=== PATIENT | female | born 1970 | race Caucasian/White ===

== ENCOUNTER → 2016-06-26 | Outpatient (CLI) | payer OTHER ==
[~2016-06-26] MED LIST: ADVAIR 250/501 EA INH; ANAPROX DS550 MG PO; DEPAKENE250 M2 PO; DEPAKOTE500 MG PO; INVEGA3 MG PO; KLONOPIN0.5 MG PO; LODINE400 MG PO; PRILOSEC40 MG PO; RANITIDINE 7575 MG PO; RESTORIL30 MG PO; SAPHRIS10 M1 SL; SAPHRIS5 M1 SL; SINGULAIR10 MG PO; VENTOLIN H0.09 MG/AC INH; XANAX0.25 MG PO
[2016-06-26 15:16] LABS: HEMATOCRIT 39.4 % (37.0-47.0); HEMOGLOBIN 13.2 g/dl (12.0-16.0); MEAN CELL VOLUME 93.6 fl (81.0-99.0); MEAN CORPUSCULAR HGB 31.4 pg (27.0-31.0); MEAN CORPUSCULAR HGB CONC 33.5 g/dl (33.0-37.0); MEAN PLATELET VOLUME 9.2 fl (9.6-12.3); PLATELET COUNT AUTOMATED 190 10*3/uL (130-400); RED BLOOD COUNT 4.21 10*6/uL (4.10-5.10); RED CELL DISTRI WIDTH 13.6 % (0-14.5); WHITE BLOOD COUNT 4.8 10*3/uL (4.8-10.8)
[2016-06-26 15:43] LABS: ATYPICAL LYMPHS 4 % (0-0); LYMPHOCYTE # 1.3 10*3/uL (1.3-4.4); MONOCYTE # 0.5 10*3/uL (0.1-1.0); NEUTROPHILS 62 % (47-73); PLATELET SUFFICIENCY NORMAL (NORMAL); POLYCHROMASIA SLIGHT; TOTAL CELLS COUNTED 100 #CELLS
== END | disposition home or self-care (01) ==
LOC: US 14:00 → LAB 14:06
PROVIDERS: Nurse Practitioner Women's Health
DX: R10.2 Pelvic and perineal pain (principal)

== ENCOUNTER → 2016-08-20 | Outpatient (CLI) | payer OTHER ==
[2016-08-20 11:12] LABS: BASO # 0.1 10*3/uL (0.0-0.1); BASO % 0.8 % (0.0-1.0); EOS # 0.1 10*3/uL (0.0-0.4); EOS % 1.2 % (1.0-4.0); HEMOGLOBIN 13.4 g/dl (12.0-16.0); IG # 0.1 10*3/uL (0.0-0.1); LYMPH # 1.9 10*3/uL (1.3-4.4); LYMPH % 28.6 % (27.0-41.0); MEAN CELL VOLUME 94.1 fl (81.0-99.0); MEAN CORPUSCULAR HGB 31.5 pg (27.0-31.0); MEAN CORPUSCULAR HGB CONC 33.5 g/dl (33.0-37.0); MEAN PLATELET VOLUME 8.7 fl (9.6-12.3); MONO # 0.7 10*3/uL (0.1-1.0); NEUT # 3.8 10*3/uL (2.3-7.9); NEUT % 57.5 % (47.0-73.0); PLATELET COUNT AUTOMATED 227 10*3/uL (130-400); RED BLOOD COUNT 4.25 10*6/uL (4.10-5.10); RED CELL DISTRI WIDTH 13.5 % (0-14.5); WHITE BLOOD COUNT 6.5 10*3/uL (4.8-10.8)
== END | disposition home or self-care (01) ==
LOC: LAB 10:56
PROVIDERS: Obstetrics & Gynecology
DX: N80.0 Endometriosis of uterus (principal); N94.6 Dysmenorrhea, unspecified

== ENCOUNTER 2016-08-27 05:10 | Inpatient (IN) | payer OTHER ==
[~2016-08-27] VITALS: Ht 172.7 cm; Wt 77.1 kg
[2016-08-27] VITALS (9 sets, daily range): BP systolic 123–146; BP diastolic 55–83
--- NOTE | ~2016-08-27 | WRIGHTHP ---
[place], [place] PATIENT HISTORY AND PHYSICAL EXAM NAME: GALI COYLE [facility] #: [id number] UNIT #: [id number] ROOM: DOCTOR: REYNA SOLIZ MD BIRTHDATE: [birth year] DOS: 08/27/2016 PRIMARY PROVIDER: Dr. Tram Duarte. HISTORY OF PRESENT ILLNESS: This is a 46-year-old white female, 2, para 2, AB 0, status post tubal ligation, who was seen on 08/01/2016 in referral for pelvic pain, severe cramping and abnormal bleeding. The patient is a very pleasant white female who had had a tubal ligation in 1993 and an endometrial ablation with NovaSure in 1999. She had done very well with these events until 06/2016, when she started having severe dysmenorrhea with re-onset of bleeding like a period and then 2 weeks in between having several days of severe cramps as well. The patient had an ultrasound on 06/26/2016 that was considered to be normal. She continued to have this intense cramping with and without any bleeding. She was asking for narcotics, but I stated that all this may well be adenomyosis, how long as one to use narcotics for this situation. I discussed the limited therapy options that we had. The patient and I both decided LAVH and bilateral salpingectomy was in order. The risks, benefits, indications, potential complications, and alternatives were given, okay was stated and her consent was signed. We also did discuss her pulmonary situation and recommended the surgery once pulmonary clears her so that she can have general anesthesia, this is secondary to asthma that she has. She agrees. Her recent Pap had also been normal. PAST MEDICAL HISTORY: Reveals 2 pregnancies and 2 vaginal deliveries. She has also had the NovaSure and tubal ligation as I mentioned. SOCIAL HISTORY: She does smoke interestingly enough with this pulmonary condition about a pack of cigarettes a day. She does consume alcohol socially. MEDICATIONS: She uses buspirone 30 mg morning and evening for anxiety. She has a breathing machine at home that she uses on a p.r.n. basis. She uses omeprazole 40 mg daily for acid reflux, Seroquel XR 400 mg daily for sleep, Singulair 20 mg daily for allergies, divalproex sodium 500 mg daily for depression. She also takes the same medication 250 mg 2 tablets at night for depression. She takes Breo Ellipta 200/25 mcg daily for her asthma as well. ALLERGIES: THE PATIENT STATES AN ALLERGY TO VICODIN AND ATIVAN. REVIEW OF SYSTEMS: Other than what I mentioned is stable. FAMILY HISTORY: Reveals father with diabetes and her mother is , but she does not say from what disorder. PHYSICAL EXAMINATION: GENERAL: Pleasant white female. She is 5 feet 8 inches, 158 pounds, BMI is 24. VITAL SIGNS: Blood pressure is 116/83. HEENT AND NECK: Grossly intact. LUNGS: Grossly intact. CARDIAC: Grossly intact. BREASTS: Grossly intact. [place], [place] PATIENT HISTORY AND PHYSICAL EXAM NAME: GALI COYLE UNIT #: [id number] ROOM: DOCTOR: REYNA SOLIZ MD BIRTHDATE: [birth year] ABDOMEN: Grossly intact. EXTREMITIES: Grossly intact. NEUROLOGIC: Grossly intact. GENITOURINARY: External genitalia, vagina, cervix normal. Bimanual exam reveals the uterus to be quite tender, anteverted and anteflexed, consistent with adenomyosis, but without significant atypicality either by ultrasound or exam otherwise. Adnexa were negative. RECTAL: Negative. Stool heme test negative. ASSESSMENT: The assessment is that of a patient status post tubal ligation and status post NovaSure, who now has a rather acute onset of pelvic pain over the last 3 months as well as significant dysmenorrhea with adenomyosis suspected. PLAN: The patient will undergo an LAVH and bilateral salpingectomy on 08/27/2016. The patient also has had clearance by Pulmonary to proceed with general anesthesia for this surgery. REYNA SOLIZ MD CM:HISPHYS:PATIENT HISTORY AND PHYSICAL EXAMINATION [id number] SHAYNA CORREA [facility] MD REYNA SLOIZ MD 08/23/16 0646 interface
--- NOTE | ~2016-08-27 | DS ---
[place], [place] DISCHARGE SUMMARY [id number] UNIT #: [id number] ROOM: 422 DOCTOR: REYNA SOLIZ MD BIRTHDATE: [birth year] DOS: 08/28/2016 HOSPITAL COURSE: This is a very pleasant 46-year-old white female who for reasons of suspected adenomyosis and having significant dysmenorrhea, status post tubal ligation and NovaSure, underwent an LAVH, lysis of adhesions, and bilateral salpingectomy on 08/27/2016. The EBL was 150-200 mL and the patient tolerated the surgery well. On postop rounds not only the day of surgery around 1:30 in the afternoon, but also in the morning on postop day #1, 08/28/2016, the patient was doing well. She was alert. She was ambulating well. She was voiding well. She was passing gas. Her lungs and cardiac status were stable. She had good bowel sounds. Her incisions were stable. She had no significant vaginal bleeding and her IV sites in her calves were within normal limits. The patient and I reviewed her operative pictures and understanding was stated. We also reviewed her discharge instructions. She will increase her diet and activity as tolerated. She will contact us should she have any complications as outlined in the discharge instructions. She will follow up in 2 weeks, as she is scheduled to go to [place] in mid September and she will follow up in 6 weeks as well. She was given Percocet 5/325 one p.o. q. 4 hours p.r.n., #25 tablets without refill. She will mix this and nonsteroidal anti-inflammatory agents to utilize in her postop recovery. She will continue on her various medications otherwise. The patient did state understanding to the information provided and was discharged in satisfactory condition on 08/28/2016. REYNA SOLIZ MD CM:CHAVEZ [id number] SHAYNA SOLIZ MD 08/28/16 0751 interface
--- NOTE | ~2016-08-27 | O ---
[place], [place] OPERATIVE NOTE [id number] UNIT #: [id number] ROOM: 422 DOCTOR: REYNA SOLIZ MD BIRTHDATE: [birth year] DOS: 08/27/2016 PREOPERATIVE DIAGNOSIS: The patient with status post tubal ligation and NovaSure, who is now having rather severe acute pelvic pain over the last 3-4 months as well as significant dysmenorrhea with adenomyosis suspected. POSTOPERATIVE DIAGNOSES: The patient with status post tubal ligation and NovaSure, who is now having rather severe acute pelvic pain over the last 3-4 months as well as significant dysmenorrhea with adenomyosis suspected with the 3 thick adhesions between the right ovary and the right sidewall. PROCEDURE: LAVH, bilateral salpingectomy, and lysis of these 3 adhesions. SURGEON: Dr. Reyna Soliz and Dr. Akira Fairchild. ANESTHESIA: General. ESTIMATED BLOOD LOSS: 150-200 mL. REPLACEMENTS: IV fluids, Ancef and Ofirmev as well as Toradol. COMPLICATIONS: There were no significant complications, although I would describe the surgery in detail with one addition. The patient's condition to recovery stable. OPERATIVE SUMMARY: The patient was taken to the operating room in supine position, general anesthesia, endotracheal intubation, lithotomy position, prepped and draped in routine manner. The cervix was grasped with a tenaculum and a cervical manipulator placed and Mendiola catheter placed to straight drain. Once this was completed, we made infraumbilical suprapubic and right lower quadrant incisions. We placed a 5 mm trocar sleeve and laparoscope through the infraumbilical incision under direct visualization and insufflated with CO2. We then placed the suprapubic trocar sleeve and a right lower quadrant trocar sleeve, both 5 mm trocar sleeves and trocars. Examination of the pelvis revealed the uterus to be relatively small with a normal anterior cul-de-sac and posterior cul-de-sac, but the uterosacral ligaments were extremely thickened. The right ovary was adherent with 3 separate thick adhesions to the right sidewall. These were able to be lysed using the LigaSure device. The left ovary and tube were otherwise normal. Both tubes showed evidence of the previous tubal ligation. Using the LigaSure device, we then freed up the right ovary from the sidewall and then we freed the fallopian tubes from their connections to the ovary in top of the broad ligament down to the uterus using the LigaSure device. We then created round ligament and uteroovarian ligament pedicles and took our dissection down to just near the uterine vasculature at which point we then created a bladder flap connecting essentially all the way except just in the midline. Once this was completed and photographs taken, we then did do a brief exam of the upper abdomen, which did reveal some omental to anterior abdominal wall adhesions, but otherwise the upper abdomen was grossly within normal limits. We then removed our instrumentation and turned our attention vaginally repositioning the patient. We were struck with the relative [place], [place] OPERATIVE NOTE NAME: GALI COYLE UNIT #: [id number] ROOM: [facility] DOCTOR: REYNA SOLIZ MD BIRTHDATE: [birth year] immobility of the cervix due to the thickness of the uterosacral ligaments. We did inject the cervix in a circumferential manner and then, make a circumferential incision. We displaced the bladder anteriorly and kept it well suspended as well as the ureters were well suspended from her vaginal dissection. We entered the posterior cul-de-sac, created uterosacral and cardinal ligament pedicles using Shona clamps and sutures of 0 Vicryl in transfixing manner and the LigaSure. We took several additional pedicles using the LigaSure and then we entered the anterior cul-de-sac without complication. We then took several additional pedicles and inverted the uterus and then using the LigaSure from its last soft tissue connections and removed the uterus, cervix, and tubes intact. We examined the cuff and her pedicles and did ligate several bleeders particularly on the left and we did have some oozing from the cuff as we were closing it, first reperitonealizing in a pursestring manner with the 2-0 Vicryl and closing the cuff with an 0 Vicryl [id number]. The oozing did resolve and we reinsufflated the abdomen and after repositioning the patient and reinserting our instrumentation, we visualized what appeared to be several small cuff bleeders just to the right of the midline. We attempted to cauterize this using a LigaSure device and then we irrigated and removed the irrigation and finally we placed a potato-based coagulant across the vaginal cuff. We then observed this for sometime and initially thought we had excellent hemostasis, but there was persistence of 1 bleeding area. At this time, I decided to reposition the patient and I opened the cuff again and we did open the perineal closure as well and we found the bleeder and put two [id number] 0 Vicryl sutures in this area. We then carefully watched for any evidence of bleeding at any other site and noted none. We then reperitonealized using the 2-0 Vicryl in a pursestring manner and then closed the cuff with a series of interrupted 0 Vicryl [id number] sutures. Once this was completed and again we had good hemostasis of the vaginal cuff. While I was still at the vaginal cuff, my partner, Dr. Fairchild reinsufflated the abdomen, we repositioned the patient and we looked carefully again at the vaginal cuff using irrigation and removal and observation. Noting at this time good hemostasis, we did again place our potato-based coagulant over the cuff and we observed. We noted no bleeding in any point to the white coagulant over the cuff and we noted the sidewalls were stable as well as the ureters. Once this was completed and once again, we removed the 2 lower trocar sleeves and instrumentation under visualization and noting no excessive anterior abdominal bleeding, CO2 was allowed to escape, followed by removal of the infraumbilical trocar sleeve and laparoscope. Each incision was closed with several 3-0 Monocryl suture. Steri-Strips and dressings placed. The patient was then cleaned off, taken out of lithotomy position, awakened, extubated, and transferred to recovery in satisfactory condition with stable sponge and instrument count, good hemostasis and stable vital signs and a clear urine output, which we felt was altered somewhat by the positioning of the patient and started to improve as we took her out of Trendelenburg position. [place], [place] OPERATIVE NOTE NAME: GALI COYLE Franny UNIT #: [id number] ROOM: [facility] DOCTOR: REYNA SOLIZ MD BIRTHDATE: [birth year] REYNA SOLIZ MD CM:OPRECORD:OPERATIVE NOTE [id number] SHAYNA SOLIZ MD 08/27/16 1141 interface
[2016-08-27] MEDS ORDERED: SEROQUEL400 M1 PO (11:57)
[2016-08-27] MEDS ORDERED: BUSPAR15 MG PO (11:57)
[2016-08-27] MEDS ORDERED: COGENTIN0.5 MG PO (11:58)
[2016-08-28] VITALS: BP 124/68
[2016-08-28 08:00] VITALS: BP 115/66
== END 2016-08-28 10:20 | disposition home or self-care (01) | DRG 743 ==
LOC: SDC 05:10 → 4E 10:37 → SDC 11:00 → 4E 08-28 10:20
PROC: 0UT9FZZ Resection of Uterus, Via Natural or Artificial Opening With Percutaneous Endoscopic Assistance (ICD-10-PCS; principal; 2016-08-27)
PROC: 0UT7FZZ Resection of Bilateral Fallopian Tubes, Via Natural or Artificial Opening With Percutaneous Endoscopic Assistance (ICD-10-PCS; 2016-08-27)
PROC: 0UTC7ZZ Resection of Cervix, Via Natural or Artificial Opening (ICD-10-PCS; 2016-08-27)
DX: N94.6 Dysmenorrhea, unspecified (principal); J45.909 Unspecified asthma, uncomplicated; N80.0 Endometriosis of uterus; R10.2 Pelvic and perineal pain; Z88.5 Allergy status to narcotic agent; Z88.8 Allergy status to other drugs, medicaments and biological substances

== ENCOUNTER → 2016-11-19 | Outpatient (CLI) | payer OTHER ==
[~2016-11-19] MED LIST changes: +BUSPAR15 MG PO; +COGENTIN0.5 MG PO; +SEROQUEL400 M1 PO
== END | disposition home or self-care (01) ==
LOC: ORTHO 01:51
DX: M25.551 Pain in right hip (principal)

== ENCOUNTER 2019-12-16 17:35 | Emergency (ER) | payer OTHER ==
[~2019-12-16] VITALS: Wt 62.1 kg
[2019-12-16] MEDS ORDERED: Motrin,Rufen800 MG PO (17:58)
[2019-12-16] MEDS ORDERED: AMOXICILLIN500 M2 PO (17:58)
[2019-12-16] MEDS ORDERED: CLINDAMYCIN HC300 MG PO (18:00)
== END 2019-12-16 18:09 | disposition home or self-care (01) ==
LOC: ED 17:35
DX: K04.7 Periapical abscess without sinus (principal); F17.200 Nicotine dependence, unspecified, uncomplicated; Z88.8 Allergy status to other drugs, medicaments and biological substances; Z88.5 Allergy status to narcotic agent; Z88.6 Allergy status to analgesic agent

== ENCOUNTER 2020-03-18 14:25 | Emergency (ER) | payer OTHER ==
[~2020-03-18] VITALS: Ht 170.1 cm; Wt 63.5 kg
[~2020-03-18 14:25] MED LIST changes: +AMOXICILLIN500 M2 PO; +CLINDAMYCIN HC300 MG PO; +Motrin,Rufen800 MG PO
[2020-03-18 15:14] LABS: BILIRUBIN Negative (Negative); BLOOD Negative (Negative); CLARITY Clear (Clear); COLOR Yellow (Yellow); GLUCOSE Negative (Negative); KETONE Trace (Negative); LEUKO ESTERASE Trace (Negative); NITRITE Negative (Negative)
[2020-03-18 15:28] LABS: BACTERIA 1+
[2020-03-18 15:30] LABS: BASO # 0.1 10*3/uL (0.0-0.1); BASO % 0.5 % (0.0-1.0); EOS % 0.2 % (1.0-4.0); HEMATOCRIT 40.2 % (37.0-47.0); LYMPH # 1.2 10*3/uL (1.3-4.4); LYMPH % 11.7 % (27.0-41.0); MEAN CORPUSCULAR HGB CONC 32.6 g/dl (33.0-37.0); MONO # 0.5 10*3/uL (0.1-1.0); MONO % 5.3 % (3.0-9.0); NEUT # 8.2 10*3/uL (2.3-7.9); NEUT % 81.8 % (47.0-73.0); PLATELET COUNT AUTOMATED 317 10*3/uL (130-400); RED BLOOD COUNT 4.37 10*6/uL (4.10-5.10); RED CELL DISTRI WIDTH 12.5 % (0-14.5)
[2020-03-18 15:47] LABS: ALBUMIN 3.6 gm/dl (3.1-4.5); ALKALINE PHOSPHATASE 146 U/L (45-117); BUN 15 mg/dl (7-24); CHLORIDE 104 mmol/L (98-107); CREATININE 1.06 mg/dL (0.55-1.02); LIPASE 26 U/L (73-393); POTASSIUM 4.2 mmol/L (3.5-5.1); SGOT/AST 18 IU/L (3-35); SGPT/ALT 22 U/L (12-78); SODIUM 137 mmol/L (136-145); TOTAL PROTEIN 7.8 gm/dL (6.4-8.2)
[2020-03-18] MEDS ORDERED: DICYCLOMINE HCL10 MG PO (17:16)
== END 2020-03-18 17:23 | disposition home or self-care (01) ==
LOC: ED 14:25
PROVIDERS: Physician Assistant
DX: K59.00 Constipation, unspecified (principal); F17.200 Nicotine dependence, unspecified, uncomplicated; Z88.6 Allergy status to analgesic agent; Z88.8 Allergy status to other drugs, medicaments and biological substances; Z79.899 Other long term (current) drug therapy

== ENCOUNTER → 2020-03-30 | Outpatient (CLI) | payer OTHER ==
[~2020-03-30] MED LIST changes: +DICYCLOMINE HCL10 MG PO
== END | disposition home or self-care (01) ==
LOC: RAD 12:12
PROVIDERS: ATTEND Nurse Practitioner Family
DX: M25.551 Pain in right hip (principal); M25.552 Pain in left hip

== ENCOUNTER 2020-04-06 17:02 | Emergency (ER) | payer OTHER ==
[~2020-04-06] VITALS: Ht 172.7 cm; Wt 63.5 kg
[2020-04-06] MEDS ORDERED: Motrin,Rufen800 MG PO (17:41)
== END 2020-04-06 17:49 | disposition home or self-care (01) ==
LOC: ED 17:02
DX: M25.551 Pain in right hip (principal); G89.29 Other chronic pain; Z88.8 Allergy status to other drugs, medicaments and biological substances; Z79.899 Other long term (current) drug therapy; Z79.2 Long term (current) use of antibiotics

== ENCOUNTER → 2020-04-15 | Outpatient (CLI) | payer OTHER ==
[2020-04-15 17:59] LABS: BASO # 0.1 10*3/uL (0.0-0.1); BASO % 0.4 % (0.0-1.0); EOS # 0.6 10*3/uL (0.0-0.4); EOS % 5.6 % (1.0-4.0); HEMATOCRIT 40.5 % (37.0-47.0); LYMPH # 3.6 10*3/uL (1.3-4.4); LYMPH % 31.5 % (27.0-41.0); MEAN CORPUSCULAR HGB 29.5 pg (27.0-31.0); MEAN CORPUSCULAR HGB CONC 31.4 g/dl (33.0-37.0); MEAN PLATELET VOLUME 9.3 fl (9.6-12.3); MONO # 1.1 10*3/uL (0.1-1.0); MONO % 9.4 % (3.0-9.0); NEUT % 52.1 % (47.0-73.0); PLATELET COUNT AUTOMATED 365 10*3/uL (130-400); RED BLOOD COUNT 4.31 10*6/uL (4.10-5.10); RED CELL DISTRI WIDTH 12.7 % (0-14.5); WHITE BLOOD COUNT 11.4 10*3/uL (4.8-10.8)
== END | disposition home or self-care (01) ==
LOC: LAB 16:54
PROVIDERS: ATTEND Orthopaedic Surgery
DX: M25.551 Pain in right hip (principal); R56.9 Unspecified convulsions

== ENCOUNTER → 2020-05-20 | Outpatient (CLI) | payer OTHER ==
[2020-05-20 12:31] LABS: BASO # 0.1 10*3/uL (0.0-0.1); BASO % 0.6 % (0.0-1.0); EOS # 0.2 10*3/uL (0.0-0.4); HEMATOCRIT 38.5 % (37.0-47.0); LYMPH # 2.7 10*3/uL (1.3-4.4); MEAN CORPUSCULAR HGB 28.7 pg (27.0-31.0); MEAN CORPUSCULAR HGB CONC 31.9 g/dl (33.0-37.0); MEAN PLATELET VOLUME 8.8 fl (9.6-12.3); MONO # 0.9 10*3/uL (0.1-1.0); MONO % 8.3 % (3.0-9.0); NEUT # 7.2 10*3/uL (2.3-7.9); NEUT % 64.2 % (47.0-73.0); PLATELET COUNT AUTOMATED 334 10*3/uL (130-400); RED BLOOD COUNT 4.28 10*6/uL (4.10-5.10); RED CELL DISTRI WIDTH 13.4 % (0-14.5); WHITE BLOOD COUNT 11.3 10*3/uL (4.8-10.8)
[2020-05-21 05:10] LABS: HEP B CORE AB, IGM Negative (Negative); HEPATITIS B SURFACE AG Negative (Negative); HEPATITIS C VIRUS ANTIBODY <0.1 s/co (0.0-0.9); RHEUMATOID ARTHRITIS FACTOR <10.0 IU/mL (0.0-13.9)
[2020-05-22 13:06] LABS: LUPUS DRVVT 40.7 sec (0.0-47.0); PTT-LA 30.2 sec (0.0-51.9)
[2020-05-22 14:08] LABS: LUPUS REFLEX INTERPRETATION Comment: (.)
[2020-05-22 21:06] LABS: CCP ANTIBODIES IGG/IGA 6 units (0-19)
[2020-05-23 13:10] LABS: ANTI-RNP ANTIBODIES <0.2 AI (0.0-0.9)
[2020-05-26 18:06] LABS: HLA-B27 ANTIGEN Negative (.)
== END | disposition home or self-care (01) ==
LOC: LAB 12:00
PROVIDERS: ATTEND Orthopaedic Surgery
DX: I10 Essential (primary) hypertension (principal); K21.9 Gastro-esophageal reflux disease without esophagitis; R56.9 Unspecified convulsions

== ENCOUNTER 2020-06-05 12:12 | Observation (INO) | payer OTHER ==
[~2020-06-05] VITALS: Wt 61.2 kg
[2020-06-05 12:33] VITALS: BP 112/67
[2020-06-05 12:35] LABS: BASO # 0.1 10*3/uL (0.0-0.1); BASO % 0.6 % (0.0-1.0); EOS # 0.1 10*3/uL (0.0-0.4); EOS % 1.5 % (1.0-4.0); HEMATOCRIT 38.3 % (37.0-47.0); LYMPH # 2.6 10*3/uL (1.3-4.4); MEAN CELL VOLUME 89.3 fl (81.0-99.0); MEAN CORPUSCULAR HGB 28.2 pg (27.0-31.0); MEAN CORPUSCULAR HGB CONC 31.6 g/dl (33.0-37.0); MEAN PLATELET VOLUME 8.5 fl (9.6-12.3); MONO # 0.8 10*3/uL (0.1-1.0); MONO % 9.1 % (3.0-9.0); NEUT # 5.2 10*3/uL (2.3-7.9); NEUT % 58.4 % (47.0-73.0); PLATELET COUNT AUTOMATED 401 10*3/uL (130-400); RED BLOOD COUNT 4.29 10*6/uL (4.10-5.10); RED CELL DISTRI WIDTH 14.2 % (0-14.5); WHITE BLOOD COUNT 8.8 10*3/uL (4.8-10.8)
[2020-06-05 12:45] LABS: ACT PARTIAL THROMBO TIME 25.4 SECONDS (20.0-32.1)
[2020-06-05 12:52] LABS: ALBUMIN 3.2 gm/dl (3.1-4.5); ALKALINE PHOSPHATASE 42 U/L (45-117); BUN 21 mg/dl (7-24); CHLORIDE 105 mmol/L (98-107); CREATININE 1.12 mg/dL (0.55-1.02); LIPASE 29 U/L (73-393); POTASSIUM 4.4 mmol/L (3.5-5.1); SGOT/AST 12 IU/L (3-35); SGPT/ALT 13 U/L (12-78); SODIUM 137 mmol/L (136-145); TOTAL PROTEIN 7.9 gm/dL (6.4-8.2); TROPONIN I < 0.015 ng/ml (<0.045)
[2020-06-05 13:23] LABS: BILIRUBIN Negative (Negative); BLOOD Negative (Negative); CLARITY Cloudy (Clear); COLOR Yellow (Yellow); GLUCOSE Negative (Negative); KETONE Trace (Negative); LEUKO ESTERASE 2+ (Negative); NITRITE Negative (Negative)
[2020-06-05 13:30] VITALS: BP 106/66
[2020-06-05 13:36] LABS: BACTERIA 4+; EPITHELIAL CELLS 31-40; WBC 16-20 wbc/hpf (0-5)
[2020-06-05 13:53] VITALS: BP 90/72
[2020-06-05 14:37] VITALS: BP 97/59
== END 2020-06-05 17:07 | disposition left against medical advice (07) ==
LOC: ED 12:12 → EDHOLD 13:35
PROVIDERS: Nurse Practitioner Family; ADMIT Internal Medicine; ATTEND Internal Medicine
DX: R07.89 Other chest pain (principal); K21.9 Gastro-esophageal reflux disease without esophagitis; J45.909 Unspecified asthma, uncomplicated; F41.9 Anxiety disorder, unspecified; F32.9 Major depressive disorder, single episode, unspecified; R42 Dizziness and giddiness; N17.0 Acute kidney failure with tubular necrosis; R79.82 Elevated C-reactive protein (CRP); Z87.891 Personal history of nicotine dependence

== ENCOUNTER 2020-06-17 17:14 | Emergency (ER) | payer OTHER ==
[~2020-06-17] VITALS: Wt 62.6 kg
== END 2020-06-17 18:18 | disposition home or self-care (01) ==
LOC: ED 17:14
DX: M25.551 Pain in right hip (principal); M25.552 Pain in left hip; F17.210 Nicotine dependence, cigarettes, uncomplicated; Z88.8 Allergy status to other drugs, medicaments and biological substances; Z79.899 Other long term (current) drug therapy

== ENCOUNTER 2020-07-16 15:22 | Emergency (ER) | payer OTHER ==
[~2020-07-16] VITALS: Ht 172.7 cm; Wt 61.2 kg
[2020-07-16] MEDS ORDERED: PERCOCET 5-3251 EACH PO (17:56)
== END 2020-07-16 18:06 | disposition home or self-care (01) ==
LOC: ED 15:22
DX: M25.512 Pain in left shoulder (principal); M25.551 Pain in right hip; G89.29 Other chronic pain; Z88.8 Allergy status to other drugs, medicaments and biological substances; Z79.899 Other long term (current) drug therapy; Z90.710 Acquired absence of both cervix and uterus

== ENCOUNTER → 2020-08-04 | Outpatient (CLI) | payer OTHER ==
[~2020-08-04] MED LIST changes: +PERCOCET 5-3251 EACH PO
== END | disposition home or self-care (01) ==
LOC: CARD 14:00
PROVIDERS: ATTEND Internal Medicine Cardiovascular Disease
DX: Z01.810 Encounter for preprocedural cardiovascular examination (principal)

== ENCOUNTER 2020-08-27 10:32 | Emergency (ER) | payer OTHER ==
[~2020-08-27] VITALS: Wt 61.2 kg
== END 2020-08-27 12:21 | disposition home or self-care (01) ==
LOC: ED 10:32
DX: M25.512 Pain in left shoulder (principal); F17.210 Nicotine dependence, cigarettes, uncomplicated; Z79.899 Other long term (current) drug therapy; Z88.8 Allergy status to other drugs, medicaments and biological substances; Z90.711 Acquired absence of uterus with remaining cervical stump

== ENCOUNTER → 2020-09-26 | Outpatient (CLI) | payer OTHER ==
[2020-09-26 14:08] LABS: BASO # 0.1 10*3/uL (0.0-0.1); BASO % 0.7 % (0.0-1.0); EOS # 0.1 10*3/uL (0.0-0.4); EOS % 1.1 % (1.0-4.0); HEMATOCRIT 34.4 % (37.0-47.0); LYMPH # 2.2 10*3/uL (1.3-4.4); LYMPH % 29.9 % (27.0-41.0); MEAN CELL VOLUME 83.5 fl (81.0-99.0); MEAN CORPUSCULAR HGB 26.2 pg (27.0-31.0); MEAN CORPUSCULAR HGB CONC 31.4 g/dl (33.0-37.0); MEAN PLATELET VOLUME 8.4 fl (9.6-12.3); MONO # 0.7 10*3/uL (0.1-1.0); MONO % 9.8 % (3.0-9.0); NEUT # 4.3 10*3/uL (2.3-7.9); PLATELET COUNT AUTOMATED 450 10*3/uL (130-400); RED BLOOD COUNT 4.12 10*6/uL (4.10-5.10); RED CELL DISTRI WIDTH 16.9 % (0-14.5); WHITE BLOOD COUNT 7.5 10*3/uL (4.8-10.8)
[2020-09-26 14:19] LABS: ACT PARTIAL THROMBO TIME 25.4 SECONDS (20.0-32.1)
[2020-09-26 14:38] LABS: ALKALINE PHOSPHATASE 55 U/L (45-117); BUN 10 mg/dl (7-24); CHLORIDE 103 mmol/L (98-107); CREATININE 0.96 mg/dL (0.55-1.02); POTASSIUM 4.4 mmol/L (3.5-5.1); SGOT/AST 10 IU/L (3-35); SGPT/ALT 13 U/L (12-78); SODIUM 138 mmol/L (136-145)
[2020-09-26 16:35] LABS: BILIRUBIN Negative (Negative); BLOOD Negative (Negative); CLARITY Clear (Clear); COLOR Yellow (Yellow); GLUCOSE Negative (Negative); KETONE Trace (Negative); LEUKO ESTERASE 1+ (Negative); NITRITE Negative (Negative); SPECIFIC GRAVITY 1.015 (1.001-1.030)
[2020-09-26 18:24] LABS: BACTERIA 2+; EPITHELIAL CELLS 21-30
[2020-09-26 18:25] LABS: MUCOUS 1+
== END | disposition home or self-care (01) ==
LOC: LAB 13:38
PROVIDERS: ATTEND Orthopaedic Surgery
DX: Z01.818 Encounter for other preprocedural examination (principal); M16.12 Unilateral primary osteoarthritis, left hip; I10 Essential (primary) hypertension; J45.909 Unspecified asthma, uncomplicated; F31.9 Bipolar disorder, unspecified; R63.0 Anorexia; R19.7 Diarrhea, unspecified

== ENCOUNTER 2021-02-20 15:00 | Emergency (ER) | payer OTHER ==
[~2021-02-20] VITALS: Ht 172.7 cm; Wt 65.3 kg
== END 2021-02-20 18:38 | disposition home or self-care (01) ==
LOC: ED 15:00
DX: M25.512 Pain in left shoulder (principal); Z88.8 Allergy status to other drugs, medicaments and biological substances; Z79.899 Other long term (current) drug therapy; Z90.711 Acquired absence of uterus with remaining cervical stump

== ENCOUNTER 2021-02-23 09:26 | Emergency (ER) | payer OTHER ==
[2021-02-23] MEDS ORDERED: PERCOCET 5-3251 EACH PO (10:52)
== END 2021-02-23 11:15 | disposition home or self-care (01) ==
LOC: ED 09:26
DX: M87.822 Other osteonecrosis, left humerus (principal); J45.909 Unspecified asthma, uncomplicated; K21.9 Gastro-esophageal reflux disease without esophagitis; F17.210 Nicotine dependence, cigarettes, uncomplicated; Z88.8 Allergy status to other drugs, medicaments and biological substances; Z79.899 Other long term (current) drug therapy

== ENCOUNTER 2021-03-11 20:07 | Emergency (ER) | payer OTHER ==
[~2021-03-11] VITALS: Ht 172.7 cm; Wt 64.4 kg
[2021-03-11 21:14] LABS: BASO # 0.1 10*3/uL (0.0-0.1); BASO % 0.6 % (0.0-1.0); EOS # 0.2 10*3/uL (0.0-0.4); EOS % 1.8 % (1.0-4.0); HEMATOCRIT 36.8 % (37.0-47.0); LYMPH # 3.4 10*3/uL (1.3-4.4); LYMPH % 28.5 % (27.0-41.0); MEAN CELL VOLUME 85.6 fl (81.0-99.0); MEAN CORPUSCULAR HGB 26.5 pg (27.0-31.0); MEAN PLATELET VOLUME 8.8 fl (9.6-12.3); MONO # 1.4 10*3/uL (0.1-1.0); MONO % 11.5 % (3.0-9.0); NEUT # 6.8 10*3/uL (2.3-7.9); NEUT % 56.8 % (47.0-73.0); PLATELET COUNT AUTOMATED 480 10*3/uL (130-400); RED CELL DISTRI WIDTH 16.1 % (0-14.5); WHITE BLOOD COUNT 11.9 10*3/uL (4.8-10.8)
[2021-03-11 21:15] LABS: BILIRUBIN Negative (Negative); BLOOD Negative (Negative); CLARITY Clear (Clear); COLOR Yellow (Yellow); GLUCOSE Negative (Negative); KETONE Trace (Negative); LEUKO ESTERASE Negative (Negative); NITRITE Negative (Negative)
[2021-03-11 21:26] LABS: URINE AMPHETAMINES < 1000 (1000ng/ml); URINE BARBITURATES < 200 (200ng/ml); URINE BENZODIAZEPINES < 200 (200ng/ml); URINE CANNABINOIDS (THC) < 50 (50ng/ml); URINE COCAINE < 300 (300ng/ml); URINE METHADONE < 300 (300ng/ml); URINE OPIATES < 300 (300ng/ml)
[2021-03-11 21:28] LABS: BACTERIA TRACE; EPITHELIAL CELLS 0-2; RBC 0-2 rbc/hpf (0-2); WBC 0-2 wbc/hpf (0-5)
[2021-03-11 21:30] LABS: ALBUMIN 2.9 gm/dl (3.1-4.5); ALKALINE PHOSPHATASE 66 U/L (45-117); BUN 26 mg/dl (7-24); CHLORIDE 107 mmol/L (98-107); CREATININE 1.05 mg/dL (0.55-1.02); POTASSIUM 4.3 mmol/L (3.5-5.1); SGOT/AST 8 IU/L (3-35); SGPT/ALT 18 U/L (12-78); SODIUM 141 mmol/L (136-145); TOTAL PROTEIN 7.4 gm/dL (6.4-8.2)
[2021-03-11 21:31] LABS: URINE PHENCYCLIDINE < 25 (25ng/ml)
[2021-03-11 21:32] LABS: TROPONIN I < 0.015 ng/ml (<0.045)
== END 2021-03-11 23:29 | disposition home or self-care (01) ==
LOC: ED 20:07
PROVIDERS: Physician Assistant
DX: R51.9 Headache, unspecified (principal); R06.02 Shortness of breath; F17.210 Nicotine dependence, cigarettes, uncomplicated; Z88.8 Allergy status to other drugs, medicaments and biological substances; Z79.899 Other long term (current) drug therapy

== ENCOUNTER 2021-05-02 09:58 | Emergency (ER) | payer OTHER ==
[2021-05-02] MEDS ORDERED: NAPROXEN500 M1 PO (10:58)
[2021-05-02] MEDS ORDERED: PERCOCET 5-3251 EACH PO (10:59)
== END 2021-05-02 11:04 | disposition home or self-care (01) ==
LOC: ED 09:58
DX: M87.029 Idiopathic aseptic necrosis of unspecified humerus (principal); F17.210 Nicotine dependence, cigarettes, uncomplicated; Z88.6 Allergy status to analgesic agent; Z88.8 Allergy status to other drugs, medicaments and biological substances; Z79.899 Other long term (current) drug therapy

== ENCOUNTER → 2021-05-08 | Outpatient (CLI) | payer OTHER ==
[~2021-05-08] MED LIST changes: +NAPROXEN500 M1 PO
== END | disposition home or self-care (01) ==
LOC: MRI 08:00
PROVIDERS: ATTEND Nurse Practitioner Family
DX: G31.9 Degenerative disease of nervous system, unspecified (principal); R41.3 Other amnesia